=== PATIENT | male | born 1960 | race African-American/Black ===

== ENCOUNTER 2017-03-20 11:58 | Emergency (ER) | payer MEDICAID ==
[~2017-03-20] VITALS: Ht 180.3 cm; Wt 147.9 kg
--- NOTE | 2017-03-20 13:08 | NUR ---
DR CANO AT THE BEDSIDE FOR EVAL AND EXAM.
[2017-03-20] MEDS ORDERED: ONDANSETRON 4 MG/2 ML VIAL IV ONE (13:15)
[2017-03-20] MEDS ORDERED: MORPHINE SULFATE 4 MG/1 ML DISP.SYRIN IV ONE (13:15)
[2017-03-20] MEDS ORDERED: IV NORMAL SALINE 1000 ML BAG IV ONE (13:15)
--- NOTE | 2017-03-20 13:32 | NUR ---
PT SIGNED IV CONTRAST CONSENT, PLACED IN THE CHART.
[2017-03-20] MEDS ORDERED: ONDANSETRON 4 MG/2 ML VIAL ONE (13:36)
[2017-03-20] MEDS ORDERED: MORPHINE SULFATE 10 MG/1 ML DISP.SYRIN ONE (13:37)
[2017-03-20 13:39] LABS: BASOPHILS % (AUTO) 0.2 % (0.0-2.0); EOSINOPHILS # (AUTO) 0.1 K/uL (0.0-0.7); EOSINOPHILS % (AUTO) 1.5 % (0.0-7.0); HEMATOCRIT 44.1 % (36.7-47.1); HEMOGLOBIN 14.7 g/dL (12.5-16.3); LYMPHOCYTES # (AUTO) 2.7 K/uL (20.0-40.0); LYMPHOCYTES % (AUTO) 36.5 % (20.5-51.5); MEAN CORPUSCULAR HEMOGLOBIN 27.6 uug (23.8-33.4); MEAN CORPUSCULAR HGB CONC 33 g/dL (32.5-36.3); MONOCYTES # (AUTO) 0.4 K/uL (2.0-10.0); MONOCYTES % (AUTO) 5.8 % (0.0-11.0); NEUTROPHILS # (AUTO) 4.1 K/uL (1.8-8.9); PLATELET COUNT (AUTO) 197 K/uL (152-348); RED BLOOD CELL COUNT(AUTO) 5.32 MIL/uL (4.06-5.63); WHITE BLOOD COUNT (AUTO) 7.4 K/uL (3.6-10.2)
[2017-03-20 13:49] LABS: BILIRUBIN,DIRECT 0.1 mg/dL (0.0-0.2); BILIRUBIN,TOTAL 0.3 mg/dL (0.2-1.0); POTASSIUM 4.1 mmol/L (3.5-5.1); TOTAL PROTEIN, SERUM 7.2 g/dL (6.4-8.2)
--- NOTE | 2017-03-20 14:19 | NUR ---
Patient is resting comfortably in bed with eyes closed, NAD noted.
--- NOTE | 2017-03-20 15:00 | NUR ---
Pt out of Er for CT.
[2017-03-20] MEDS ORDERED: IOHEXOL 300MG/ML 100 ML INFUS..BTL ONE (15:03)
[2017-03-20] MEDS ORDERED: IV NORMAL SALINE 250 ML IV ONE (15:04)
[2017-03-20] MEDS ORDERED: HYDROMORPHONE 1 MG/1 ML DISP.SYRIN IV ONE (16:15)
[2017-03-20] MEDS ORDERED: HYDROMORPHONE 2 MG/1 ML DISP.SYRIN ONE (16:40)
[2017-03-20] MEDS ORDERED: IV NORMAL SALINE 500 ML BAG IV ONE (16:45)
--- NOTE | 2017-03-20 16:53 | NUR ---
Patient is resting comfortably in bed watching tv, states pain is better now and is 3/10.
--- NOTE | 2017-03-20 18:03 | NUR ---
IV removed. Catheter intact and site benign. Pressure and 4x4 gauze applied to site. No bleeding noted.
--- NOTE | 2017-03-20 18:06 | NUR ---
Patient discharged to home in stable conditon. Written and verbal after care instructions given. Patient verbalizes understanding of instructions.
[2017-03-20 18:07] VITALS: BP 140/90
== END 2017-03-20 18:08 | disposition home or self-care (01) ==
LOC: ER 11:58
DX: G89.29 Other chronic pain (principal); I10 Essential (primary) hypertension; E11.9 Type 2 diabetes mellitus without complications
CPT/HCPCS: 36415; 74177; 80048; 80076; 85025; 96361; 96374; 96375; 99285; A4663; J1170; J2270; J2405; J7040; J7050; Q9967